=== PATIENT | male | born 2000 | race Asian ===

== ENCOUNTER 2021-01-07 11:59 | Outpatient (REF) | payer OTHER, SELFPAY ==
[2021-01-07 13:27] LABS: T4 Thyroxine 7.4 ug/dL (4.5-12.0); Thyroid Stimulating Hormone 0.73 uIU/mL (0.32-4.0)
[2021-01-08 16:11] LABS: T3 Uptake 30 % (22-35)
[2021-01-09 11:28] LABS: Ceruloplasmin 19 mg/dL (18-36)
[2021-01-12 13:08] LABS: Copper, serum 61 mcg/dL (70-175)
== END 2021-01-07 12:00 | disposition home or self-care (01) ==
LOC: HO.LAB 11:59
PROVIDERS: PCP Physician Assistant Medical; Visit Provider Psychiatry & Neurology Neurology
DX: G25.0 Essential tremor (principal)
CPT/HCPCS: 36415; 82390; 82525; 84436; 84443; 84479